=== PATIENT | female | born 1970 | race Caucasian/White ===

== ENCOUNTER → 2018-04-16 | Day surgery (SDC) | payer OTHER ==
[~2018-04-16] VITALS: Ht 165.1 cm; Wt 104.7 kg
[~2018-04-16] MED LIST: *morphine SULFATE 4 MG/ML PERIprocedure ONLY ONE; ACETAMINOPHEN 1000 MG/100 ML 100 ML IV ONE; CHLORHEXIDINE GLUCONATE 2 % 1 PACK (2 CLOTHS) TOPICAL PRN; DEXAMETHASONE SOD PHOS 4 MG/ML VIAL IV ONE; DO NOT ADM ANY ANTICOAGULANT DRUGS PRN; FERR325T18 PO; INSULIN HUMAN REGULAR 1,000 UNITS/10 ML VIAL SQ PRN; LACTATED RINGER'S 1000 ML IV PRN; LIDOCAINE 1%/EPINEPHrine 1:100,000 SOLN 30 ML VIAL ONE; LIDOCAINE HCL 1% PF 5 ML SYRINGE OTHER ONE; METOPROLOL TARTRATE 25 MG TAB PO PRN; MIDAZOLAM HCL 2 MG/2 ML VIAL ONE; ONDANSETRON HCL 4 MG/2 ML VIAL IV ONE; PERC5TAB12 PO; POVIDONE IODINE 5% (ANTISEPSIS KIT) 4 APPLICATIONS EACH NARE PRN; PROPOFOL 200 MG/20 ML AMP IV ONE; SODIUM CHLORID 0.9% 500 ML IV PRN; ceFAZolin INJ 1,000 MG VIAL ONE; ePHEDrine/NS 25 MG/5 ML SYRINGE IV ONE; fentaNYL CITRATE 250 MCG/5 ML AMP ONE; oxyCODONE/ACETAMINOPHEN 5 MG/325 MG TAB ONE
--- NOTE | 2018-04-16 12:03 | RADRPT ---
EXAM DATE: 04/16/2018 11:56 AM EDT AGE/SEX: 47 years / Female INDICATIONS: Evaluate for pneumonia, pneumothorax or communicable disease. Pre-op for varicose vein stripping. CLINICAL DATA: This is the patient's initial encounter. Patient reports that signs and symptoms have been present for 1 day and indicates a pain score of 0/10. MEDICAL/SURGICAL HISTORY: None. None. COMPARISON: No prior exams available for comparison. FINDINGS: A single AP view of the chest demonstrates the lungs to be symmetrically aerated without e vidence of mass, infiltrate or effusion. The cardiomediastinal contours are unremarkable. Osseous s tructures are intact. CONCLUSION: No active disease. Electronically signed by: Quang Martinez MD 04/16/2018 12:02 PM EDT
[2018-04-16 12:18] LABS: BASOPHIL % 0.5 % (0.0-2.0); EOSINOPHIL # 0.1 TH/MM3 (0-0.4); HEMATOCRIT 36.9 % (35.0-46.0); HEMOGLOBIN 11.8 GM/DL (11.6-15.3); LYMPH % 27.9 % (9.0-44.0); LYMPHOCYTE # 2.7 TH/MM3 (1.0-4.8); MEAN CELL VOLUME 62.1 FL (80.0-100.0); MEAN CORPUSCULAR HEMOGLOBIN 19.9 PG (27.0-34.0); MEAN PLATELET VOLUME 8.3 FL (7.0-11.0); MONO % 9.4 % (0.0-8.0); MONOCYTE # 0.9 TH/MM3 (0-0.9); NEUT % 61.2 % (16.0-70.0); PLATELET COUNT 399 TH/MM3 (150-450); RED BLOOD COUNT 5.94 MIL/MM3 (4.00-5.30); WHITE BLOOD COUNT 9.8 TH/MM3 (4.0-11.0)
[2018-04-16 12:42] LABS: BICARBONATE 22.2 MEQ/L (21.0-32.0); CALCIUM 9.1 MG/DL (8.5-10.1); CREATININE 0.8 MG/DL (0.50-1.00)
--- NOTE | 2018-04-16 16:05 | EKG ---
Date Performed: 04/16/2018 Time Performed: 11:51:05 PTAGE: 47 years EKG: ECTOPIC ATRIAL RHYTHM BORDERLINE LEFT AXIS DEVIATION LOW QRS VOLTAGE IN EXTREMITY LEADS PAT TERN CONSISTENT WITH PULMONARY DISEASE ABNORMAL ECG NO PREVIOUS TRACING DOCTOR: Kelsey Alas Interpretating Date/Time 04/16/2018 16:02:54
[2018-04-16 18:40] VITALS: BP 109/56; PULSE 74; RESP 20; TEMP 97.8; O2SAT 97
--- NOTE | 2018-04-16 20:01 | MP ---
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 PROCEDURE PERFORMED: Varicose vein stripping and ligation. SURGEON: Carmen Leggett MD ANESTHESIA: General. ESTIMATED BLOOD LOSS: 20 mL DESCRIPTION OF PROCEDURE: The patient was prepped and draped in usual fashion. After the veins were marked in the preop area, successive number of tiny incisions is made with a 15 blade and then the veins are isolated in clusters with a mosquito hemostat under each of 2-0 Vicryl ties placed and this has continued over the lower part of the thigh on to the knee and then the upper part of the calf, where there are isolated varicosities. When all of the varicosities are dressed, they are distally tied and then pulled out by stripping it with a hemostat and varicosities are removed. Meticulous hemostasis obtained and the incision was closed with 4-0 Monocryl, benzoin Steri-Strips applied. The patient tolerated the procedure well. MD CHRISTIAN Cade/LUCRECIA , 06:49 PM , 08:00 PM
== END | disposition home or self-care (01) ==
LOC: HSDC 11:03
PROVIDERS: ATTEND Surgery
DX: I83.891 Varicose veins of right lower extremity with other complications (principal); R94.31 Abnormal electrocardiogram [ECG] [EKG]
CPT/HCPCS: 01520; 37765; 71045; 80048; 85025; 88304; 93005; J0131; J0690; J1100; J2250; J2270; J2405; J3010; J7120